=== PATIENT | male | born 1955 | race Caucasian/White ===

== ENCOUNTER 2022-04-27 08:44 | Emergency (ER) | payer BC, SELFPAY ==
--- NOTE | ~2022-04-27 | XR_ITS ---
XR forearm LT 2V DATE: 04/27/2022 09:10 INDICATION: Left proximal forearm pain after bracing himself during a fall TECHNIQUE: AP and lateral views COMPARISON: None FINDINGS: There is suggestion of a very subtle virtually nondisplaced radial neck fracture: Very subt le cortical offset is suggested at the lateral aspect of the radial neck. Left elbow radiographs are recommended. No other fracture or dislocation, periosteal reaction or bone destruction of the left forearm is dete cted. IMPRESSION: Suspected very subtle virtually nondisplaced radial neck fracture; 4 view left elbow radi ographs are recommended. Reviewed, dictated and finalized at location A. IMPRESSION: Suspected very subtle virtually nondisplaced radial neck fracture; 4 view left elbow radiographs are recommended.
--- NOTE | ~2022-04-27 | XR_ITS ---
XR elbow LT min 3V DATE: 04/27/2022 09:55 INDICATION: Prominent left forearm pain following a fall last night TECHNIQUE: 4 views COMPARISON: None FINDINGS: There is a virtually nondisplaced radial neck fracture. No other fracture or dislocation. IMPRESSION: Virtually nondisplaced radial neck fracture Reviewed, dictated and finalized at location A.
--- NOTE | 2022-04-27 08:46 | ED.UPPEXIN ---
HPI - Extremity Injury (Upper) General Chief Complaint: Extremity Injury, Upper Stated Complaint: left arm pain Time Seen by Provider: 04/27/22 09:14 Source: patient and RN notes reviewed Mode of arrival: ambulatory Limitations: no limitations History of Present Illness HPI narrative: 66-year-old male presents to the [facility] with complaints of left arm pain since yesterday. Patient states that he fell with outstretched arm. Patient reports that he was walking out when his glasses fogged up and tripped over his left foot landing with his arms and hands stretched out. Started with pain in the mid left forearm and last night has gradually increased and moved up his proximal forearm. No bruising or swelling noted. Patient states his wedding band will come off. Tenderness to the antecubital area. Pain with movement of the elbow. Full range of motion of the wrist. No snuffbox tenderness. Strong paper supervisor noted. Sensation intact and capillary refill under 2 seconds MD complaint: injury to: left and arm Onset (ago): day(s) (1) Other Extremity Injury: Left: forearm Handedness: left Related Data Allergies Allergy/AdvReac Type Severity Reaction Status Date / Time No Known Allergies Allergy Unknown Verified 04/27/22 08:52 Review of Systems Review of Systems: All systems reviewed & are unremarkable except as noted in HPI and below Constitutional: Constitutional: Reports no additional constitutional complaints, Denies chills and Denies fever(s) Eyes: Eyes: Reports no additional eye complaints ENT: Reports system reviewed and no additional complaints, except as documented Cardiovascular: Cardiovascular: Reports no additional cardiovascular complaints Respiratory: Respiratory: Reports no additional respiratory complaints Gastrointestinal: Gastrointestinal: Reports no additional gastrointestinal complaints Musculoskeletal: Musculoskeletal: Reports as per HPI Comments: left forearm pain Integumentary/Breasts: Skin/Breast: Reports system reviewed and no additional complaints, except as docu Neurologic: Reports system reviewed and no additional complaints, except as documented Psychiatric: Psychiatric: Reports no additional psychiatric complaints Allergic/Immunologic: Allergic/Immunologic: Reports no additional allergic/immunologic complaints [facility] Past Medical History Medical History Other hyperlipidemia SK (seborrheic keratosis) Family History Family History Other Diabetes mellitus Social History Social History Smoking status: Never smoker Alcohol intake: current Comments At the time of my signature, I reviewed and agree with the nursing past medical, surgical, social, and family history. There is no relevant family history pertinent to the patient complaint. Exam Const: General: healthy appearing, no acute distress and alert Nutritional Appearance: well nourished Orientation/consciousness: patient oriented x3 Limitations: no limitations HENMT: Head: normal to inspection Ears: external ears normal Face and sinus: normal facial exam Eyes: General: appearance normal, both eyes and all related structures Pupils: Equal, round and reactive pupils present Neck: Neck: normal visual inspection, no lymphadenopathy and no meningeal signs Chest: Chest palpation & inspection: normal inspection of the chest Resp: Effort & Inspection: normal respiratory effort and no use of accessory muscles Auscultation: clear to auscultation bilaterally Cardio: Rate: regular rate Rhythm: regular rhythm Back/Spine/Pelvis: Cervical Spine: normal cervical lordosis Thoracic/Lumbar Spine: thoracic and lumbar spine normal to inspection Skin: General skin exam: normal color Rashes: no rashes Wounds: no wounds Neuro: General: patient oriented x3, moves all extremities
[2022-04-27 08:57] VITALS: BP 140/100; PULSE 79; RESP 16; TEMP 36.2; O2SAT 99
== END 2022-04-27 10:50 | disposition home or self-care (01) ==
PROVIDERS: Emergency Provider Nurse Practitioner
DX: S52.135A Nondisplaced fracture of neck of left radius, initial encounter for closed fracture (principal); W01.0XXA Fall on same level from slipping, tripping and stumbling without subsequent striking against object, initial encounter; E78.49 Other hyperlipidemia
CPT/HCPCS: 29105; 73080; 73090; 99214; A4565; G0463

== ENCOUNTER 2023-05-28 08:00 | Outpatient (NON) | payer BC, SELFPAY | END 2023-05-28 08:01 | disposition home or self-care (01) | PROVIDERS: PCP Student in an Organized Health Care Education/Training Program; Visit Provider Nurse Practitioner | DX: D48.5 Neoplasm of uncertain behavior of skin (principal) | CPT/HCPCS: 88305 ==